=== PATIENT | female | born 1975 | race Caucasian/White ===

== ENCOUNTER 2020-05-16 09:02 | Inpatient (IN) | payer BC ==
[~2020-05-16 09:02] MED LIST: Dexamethasone 4 MG/ML SDV ONE; Glycopyrrolate 0.2 MG/ML 5 ML MDV ONE; Neostigmine Methylsulfate 1 MG/ML 5 ML Syringe ONE; Ondansetron 4 MG/2 ML SDV ONE; Propofol 200 MG/20 ML SDV ONE; Rocuronium 50 MG/5 ML Vial ONE; Succinylcholine 200 MG/10 ML MDV ONE; cefOXitin 2 GM Vial ONE; fentaNYL 250 MCG/5 ML SDV ONE
[2020-05-16] MEDS ORDERED: Celecoxib 200 MG Cap PO ONE (09:15)
[2020-05-16] MEDS ORDERED: Scopolamine 1.5 MG Transdermal Patch TRDERM ONE (09:15)
[2020-05-16] MEDS ORDERED: Acetaminophen 500 MG Tab PO ONE (09:15)
[2020-05-16] MEDS ORDERED: Gabapentin 300 MG Cap PO ONE (09:45)
[2020-05-16] MEDS ORDERED: Dextrose 5%-Lactated Ringers 1,000 ML IV SCH ×2 (09:45→16:00)
[2020-05-16] MEDS ORDERED: Ketamine 500 MG/5 ML MDV IV SCH (11:00)
[2020-05-16] MEDS ORDERED: Ketamine 50 MG in Sodium Chloride 0.9% 49.5 ML IV SCH (11:00)
[2020-05-16] MEDS ORDERED: Magnesium Sulfate 3.5 GM in Sodium Chloride 0.9% 100 ML IV SCH (11:00)
[2020-05-16] MEDS: cefOXitin 2 GM in Sodium Chloride 0.9% 50 ML IV ONE ×2 (11:53→16:26)
[2020-05-16] MEDS ORDERED: fentaNYL 250 MCG/5 ML SDV ONE (12:38)
[2020-05-16] MEDS ORDERED: Rocuronium 50 MG/5 ML Vial ONE (12:58)
[2020-05-16] MEDS ORDERED: Insulin Lispro 100 Unit/ML 3 ML KwikPen SUBCUT ONE (14:27)
[2020-05-16] MEDS ORDERED: fentaNYL 100 MCG/2 ML SDV IVPUSH ONE (14:34)
[2020-05-16] MEDS ORDERED: hydrOXYzine HCL 100 MG/2 ML SDV IM ONE (14:34)
[2020-05-16] MEDS: Lactated Ringers 1,000 ML IV SCH (15:00)
[2020-05-16] MEDS ORDERED: HYDROmorphone 1 MG/ML Syringe ONE (15:46)
[2020-05-16] MEDS ORDERED: Cyclobenzaprine 10 MG Tab PO PRN (15:49)
[2020-05-16] MEDS ORDERED: HYDROmorphone 0.5 MG/0.5 ML Syringe IVPUSH PRN (16:00)
[2020-05-16] MEDS ORDERED: HYDROmorphone 1 MG/ML Syringe IV PRN (16:00)
[2020-05-16] MEDS ORDERED: Labetalol 20 MG/4 ML Syringe IVPUSH PRN (16:00)
[2020-05-16] MEDS ORDERED: hydrOXYzine HCL 100 MG/2 ML SDV IM PRN (16:00)
[2020-05-16] MEDS ORDERED: diphenhydrAMINE 50 MG/ML SDV IVPUSH PRN (16:00)
[2020-05-16] MEDS ORDERED: MVI, Adult with Vitamin K 10 ML, Thiamine 200 MG, Chromium/Copper/Mang/Selen/Zn 1 ML in... IV SCH ×4 (16:00)
[2020-05-16] MEDS ORDERED: 50% Dextrose in Water 50 ML Syringe IVPUSH PRN (16:00)
[2020-05-16] MEDS ORDERED: Metoclopramide 10 MG/2 ML SDV IVPUSH PRN (16:00)
[2020-05-16] MEDS ORDERED: Acetaminophen 500 MG Tab PO PRN (16:00)
[2020-05-16] MEDS ORDERED: Calcium Gluconate 10% 1 GM/10 ML SDV IVPUSH PRN (16:00)
[2020-05-16] MEDS ORDERED: Ondansetron 4 MG/2 ML SDV IVPUSH PRN (16:00)
[2020-05-16] MEDS ORDERED: Glucagon,Human Recombinant 1 MG Vial IM PRN (16:00)
[2020-05-16] MEDS: Acetaminophen 500 MG Tab PO SCH (17:23)
[2020-05-16] MEDS: SCOPOLAMINE PATCH CHECK TOP SCH (17:23)
[2020-05-16] MEDS: Atenolol 25 MG Tab PO SCH (17:23)
[2020-05-16] MEDS: cefOXitin 2 GM in Sodium Chloride 0.9% 50 ML IV SCH ×2 (17:24→23:05)
[2020-05-16] MEDS ORDERED: Pantoprazole 40 MG Vial IVPUSH SCH (18:00)
[2020-05-16] MEDS: Gabapentin 250 MG/5 ML Solution ML 470 ML Bottle PO SCH (21:07)
[2020-05-16] MEDS: Heparin Sodium 5,000 Units/ML Vial SUBCUT SCH (21:07)
[2020-05-16] MEDS: Escitalopram 10 MG Tab PO SCH (21:07)
[2020-05-16] MEDS: oxyCODONE 5 MG Tab PO PRN (21:13)
[2020-05-16] MEDS: Insulin Lispro 100 Unit/ML 3 ML KwikPen SUBCUT PRN (22:39)
[2020-05-17] MEDS: Acetaminophen 500 MG Tab PO SCH ×4 (00:14→23:11)
[2020-05-17] MEDS: oxyCODONE 5 MG Tab PO PRN ×3 (03:38→17:00)
[2020-05-17] MEDS ORDERED: Iopamidol 612 MG/ML 50 ML SDV PO ONE (04:00)
[2020-05-17] MEDS: cefOXitin 2 GM in Sodium Chloride 0.9% 50 ML IV SCH ×2 (05:51→11:42)
[2020-05-17] MEDS: Insulin Lispro 100 Unit/ML 3 ML KwikPen SUBCUT PRN ×3 (05:51→21:45)
[2020-05-17] MEDS: Lactated Ringers 1,000 ML IV SCH (07:35)
[2020-05-17] MEDS: Heparin Sodium 5,000 Units/ML Vial SUBCUT SCH ×2 (07:40→20:00)
[2020-05-17] MEDS: Hydrochlorothiazide 12.5 MG Cap PO SCH (08:44)
[2020-05-17] MEDS: Benazepril 10 MG Tab PO SCH (08:44)
[2020-05-17] MEDS: Celecoxib 200 MG Cap PO SCH ×2 (08:45→20:00)
[2020-05-17] MEDS ORDERED: Cetirizine 10 MG Tab PO SCH ×2 (09:00→21:00)
[2020-05-17] MEDS: SCOPOLAMINE PATCH CHECK TOP SCH (09:46)
[2020-05-17] MEDS ORDERED: Lactated Ringers 1,000 ML IV SCH (12:30)
[2020-05-17] MEDS ORDERED: MVI, Adult with Vitamin K 10 ML, Thiamine 200 MG, Chromium/Copper/Mang/Selen/Zn 1 ML in... IV SCH ×4 (16:00)
[2020-05-17] MEDS ORDERED: Pantoprazole 40 MG Delayed-Release Granules 1 Packet PO SCH (16:30)
[2020-05-17] MEDS: Atenolol 25 MG Tab PO SCH (16:56)
[2020-05-17] MEDS ORDERED: hydrOXYzine HCl 25 MG Tab PO PRN (17:36)
[2020-05-17] MEDS: Escitalopram 10 MG Tab PO SCH (20:00)
[2020-05-17] MEDS: Gabapentin 250 MG/5 ML Solution ML 470 ML Bottle PO SCH (20:00)
[2020-05-18] MEDS: Acetaminophen 500 MG Tab PO SCH (07:45)
[2020-05-18] MEDS: Heparin Sodium 5,000 Units/ML Vial SUBCUT SCH (07:46)
[2020-05-18] MEDS: Hydrochlorothiazide 12.5 MG Cap PO SCH (08:05)
[2020-05-18] MEDS: Benazepril 10 MG Tab PO SCH (08:05)
[2020-05-18] MEDS ORDERED: Magnesium Hydroxide 400 MG/5 ML Susp 30 ML Cup PO ONE (08:05)
[2020-05-18] MEDS: Celecoxib 200 MG Cap PO SCH (08:05)
[2020-05-18] MEDS: SCOPOLAMINE PATCH CHECK TOP SCH (08:06)
[2020-05-18] MEDS ORDERED: Cyanocobalamin (Vitamin B12) 1,000 MCG/ML SDV IM ONE (09:00)
--- NOTE | 2020-05-19 10:59 | OR ---
DATE OF PROCEDURE: 05/16/2020 SURGEON: Rojelio Mayorga MD PREOPERATIVE DIAGNOSIS: Morbid obesity. POSTOPERATIVE DIAGNOSES: 1. Morbid obesity. 2. Marked hepatomegaly. 3. Paraesophageal diaphragmatic hernia. 4. Mediastinal lipoma. 5. Portion of the stomach ischemic, status post formation of gastric pouch. OPERATIVE PROCEDURES: Diagnostic laparoscopy with: 1. Laparoscopic Clive-en-Y gastric bypass with long limb gastroenterostomy (16741). 2. Adi-Cut needle liver biopsy (67863). 3. Repair of paraesophageal diaphragmatic hernia (22956). 4. Excision of mediastinal lipoma (14915). 5. Partial gastrectomy (62841). ANESTHESIA: General. DRIVE IN TELLER: Rylie Cornell PA-C. INDICATIONS FOR PROCEDURE: This is a 44-year-old presenting with longstanding morbid obesity and increasingly significant comorbidities. After preoperative evaluation and discussion, she wished to proceed with a gastric bypass procedure. Potential risks of procedure including bleeding, infection, leaks from various GI tract closures, problems with bowel obstruction over time, as well as possibility of cardiopulmonary, septic, or hemorrhagic complications leading to were all discussed, and the patient wishes to proceed. DETAILS OF PROCEDURE: The patient was taken to the operating room and after general endotracheal anesthesia was induced, placed in a lithotomy position, and the abdomen prepped and draped. At 15 cm inferior and 5 cm left of the xiphoid process, a transverse incision was made and the peritoneal cavity entered under direct vision with an Optiview trocar, inflated to 15 mmHg pressure with CO2. Laparoscope was reinserted. No underlying trocar insertion site injuries were seen. Following this, bilateral transversus abdominis plane blocks were placed, and 5 additional trocars were placed across the upper and mid abdomen. Initial exploration revealed a quite strikingly enlarged liver, which was grossly fatty infiltrated. Adi-Cut needle biopsy was obtained from left lobe of the liver. Minimal bleeding from the biopsy sites was controlled with electrocautery. The omentum was then divided in the midline up to the level of the transverse colon. This allowed identification of the small bowel to the ligament of Treitz. Small bowel was then traced out 150 cm distal to that point, divided transversely with a SHELLIE stapler. Small bowel was then traced out additional 150 cm where the [id number] enteroenterostomy was accomplished with internal firing of the Endo-SHELLIE 60 mm stapler, common opening was then closed transversely with the same stapler and angles of anastomosis and mesenteric defect approximated with some 0 Ethibond stitch, along with fibrin sealant. The divided end of the Clive limb was then from the mesentery for a few centimeters, which allowed an antecolic position of the Clive limb up to the level of the gastroesophageal junction without tension. The liver was then retracted anteriorly. The patient was noted to have a moderate-sized paraesophageal diaphragmatic hernia with prolapse of some perigastric fat and gastric fundus in a plane anterior to the course of the esophagus, this was reduced. The peritoneum overlying incised and reflected downward. During the course of dissection, a roughly ping pong ball-sized mediastinal lipoma was encountered. To facilitate more adequate crural approximation, this was resected, and the crural repair was then accomplished anteriorly with some 0 Ethibond sutures reinforced with PTFE pledgets. The gastrointestinal balloon catheter was then inflated to 15 mL and pulled up snugly against the EG junction. The gastric wall over the apex balloon was then marked with electrocautery and balloon catheter deflated and pulled up from the esophagus. The lesser omental tissue adjacent to the gastric cardia was then incised, and this allowed dissection behind the stomach. The pouch formation was initiated with division of the stomach in a transverse orientation with a SHELLIE stapler at the level of the cauterized miladys on the gastric cardia. The pouch was then completed with 1 additional firing of the SHELLIE stapler up to and through the angle of His. Upon completion of the pouch, both staple lines were noted to be intact. The end of the gastric pouch, at this point, was noted to be quite dusky, and it was felt to be ischemic to the point that it needed to be resected. This was then divided with a SHELLIE purple load, which allowed the remaining pouch to be well perfused in appearance, and the partial gastrectomy specimen was sent for histologic evaluation. At this point, the anvil of a 25 mm EEA stapler was attached to the Simpson sump tube and passed down through the mouth and taken out through a small opening in the gastric pouch, allowing the anvil likewise to be pulled down to within the gastric pouch. The divided end of the Clive limb was then opened and the main body of the EEA stapler was passed several centimeters into the lumen of small bowel, brought up the anvil, united with it, thus creating the gastrojejunostomy. Upon removal of the stapler, double donuts of mucosa were noted within it. The small bowel was closed off with a vascular staple line. Gastrojejunostomy was reinforced with some 3-0 Vicryl seromuscular stitch along with fibrin sealant. Leak test was accomplished with injection of 120 mL of air into the gastric pouch while it was submerged with cefoxitin-containing saline solution. No leaks were identified. A single Pineda-Vigil drain was taken out through the left subcostal trocar site, and the remaining trocars were removed, the peritoneal cavity deflated. Incisions were closed with some 4-0 Vicryl skin stitch which was also used to fix the drain. The patient was taken to the recovery room in satisfactory condition. There were no evident complications. Physician ophthalmic surgical assistant, Rylie Cornell, played an essential role in assisting in this case, helping to position the patient, retract structures as needed, as well as suturing and cutting sutures when indicated. Her presence improved patient safety and decreased the operative time. Rojelio Mayorga MD /[id number]
--- NOTE | 2020-05-19 11:06 | DISCH ---
FINAL DIAGNOSES: 1. Morbid obesity. 2. Marked hepatomegaly. 3. Paraesophageal diaphragmatic hernia with mediastinal lipoma. 4. Focal ischemia of gastric pouch following pouch formation requiring partial gastrectomy. 5. Type 2 diabetes mellitus. 6. History of stress incontinence. 7. History of anxiety and depression. 8. Borderline hypertension. OPERATIVE PROCEDURES: Diagnostic laparoscopy with: 1. Laparoscopic Clive-en-Y gastric bypass with long-limb gastroenterostomy. 2. Adi-Cut needle liver biopsy. 3. Repair of paraesophageal diaphragmatic hernia. 4. Excision of mediastinal lipoma. 5. Partial gastrectomy. HOSPITAL COURSE: This is a 44-year-old female, presenting with longstanding morbid obesity and increasingly significant comorbidities. After preoperative evaluation and discussion, she wished to proceed with a gastric bypass procedure. The initial procedure was done on the date of admission. Her postoperative course was uneventful. She is off the diabetic medication, i.e. metformin, and is running blood sugars in the 150 to 200 range, and I think these will come down, and will still go home off the metformin. Otherwise, she will be continuing her usual medications. She is instructed to maintain a blood sugar log and bring that to the first appointment, which will be with Rylie Cornell at [facility] on 05/26/2020. She will be instructed to stay on a step-2 diet until the first appointment and to hold vitamins and other supplements until after first appointment.
--- NOTE | 2020-05-19 11:17 | CR ---
[facility] HISTORY: Postbariatric surgery FINDINGS: Patient swallowed water-soluble contrast. Upright views of the abdomen show no evidence of extravasation or obstruction. There is a surgical drain in the left upper quadrant IMPRESSION: Status post bariatric surgery No extravasation or obstruction seen
--- NOTE | 2020-05-20 11:39 | PN ---
DATE OF SERVICE: 05/17/2020 The patient is postop day #1 from a laparoscopic Clive-en-Y gastric bypass along with diaphragmatic hernia repair. Blood sugars remain still a little bit high, but I think they will come down. We will leave her off metformin at this point. Otherwise, we will go to a step 2 diet with pulmonary toilet. Upper GI x-ray looked good and she will likely be ready for discharge home tomorrow. Rojelio Mayorga MD /[id number]
== END 2020-05-18 09:50 | disposition home or self-care (01) | DRG 403 ==
LOC: JP.SDS 09:02 → JP.SDSSCHI 09:02 → EDSTATUS 09:25 → JP.MS 14:15
PROVIDERS: ADMIT Surgery; ATTEND Surgery
PROC: 0D164ZA Bypass Stomach to Jejunum, Percutaneous Endoscopic Approach (ICD-10-PCS; principal; 2020-05-16)
PROC: 0FB24ZX Excision of Left Lobe Liver, Percutaneous Endoscopic Approach, Diagnostic (ICD-10-PCS; 2020-05-16)
PROC: 0BQT4ZZ Repair Diaphragm, Percutaneous Endoscopic Approach (ICD-10-PCS; 2020-05-16)
PROC: 0JB63ZZ Excision of Chest Subcutaneous Tissue and Fascia, Percutaneous Approach (ICD-10-PCS; 2020-05-16)
PROC: 0DB64ZZ Excision of Stomach, Percutaneous Endoscopic Approach (ICD-10-PCS; 2020-05-16)
DX: E66.01 Morbid (severe) obesity due to excess calories (principal); R16.0 Hepatomegaly, not elsewhere classified; E11.9 Type 2 diabetes mellitus without complications; R32 Unspecified urinary incontinence; F41.9 Anxiety disorder, unspecified; F32.9 Major depressive disorder, single episode, unspecified; I10 Essential (primary) hypertension; D17.4 Benign lipomatous neoplasm of intrathoracic organs; K44.9 Diaphragmatic hernia without obstruction or gangrene; G47.30 Sleep apnea, unspecified; G62.9 Polyneuropathy, unspecified; Z68.42 Body mass index [BMI] 45.0-49.9, adult
CPT/HCPCS: 36415; 74240; 74240-26; 82962; 86850; 86900; 86901; 88304; 88305; 88307; 88313; 93005; 94762; A9270-GY; C9113; J0171; J0330; J0694; J1100; J1170; J1200; J1644; J1815; J1815-GY; J2405; J2704; J2710; J2795; J3010; J3410; J3411; J3420; J3475; J3490; J7050; J7120; J7121; Q9967